=== PATIENT | female | born 1995 | race Two or more races ===

== ENCOUNTER 2022-08-26 | Outpatient (REF) | payer MEDICAID, SELFPAY ==
[2022-09-01 15:22] LABS: N.Gonorrhoeae RNA TMA, Rectal DETECTED
== END 2022-08-26 00:01 | disposition home or self-care (01) ==
LOC: HO.LNP
PROVIDERS: Visit Provider Student in an Organized Health Care Education/Training Program
DX: R82.90 Unspecified abnormal findings in urine (principal); Z20.2 Contact with and (suspected) exposure to infections with a predominantly sexual mode of transmission
CPT/HCPCS: 87070; 87147; 87591

== ENCOUNTER 2022-09-28 18:05 | Outpatient (REF) | payer MEDICAID, SELFPAY ==
[2022-09-28 18:57] LABS: Influenza A PCR NEGATIVE (Negative); Influenza B PCR NEGATIVE (Negative); Resp Syncy Virus RNA Qual PCR NEGATIVE (Negative); SARS COV2 PCR INHOUSE NEGATIVE (Negative)
== END 2022-09-28 18:06 | disposition home or self-care (01) ==
LOC: HO.HHCLNP 18:05
PROVIDERS: Visit Provider Registered Nurse
DX: J02.9 Acute pharyngitis, unspecified (principal); Z20.822 Contact with and (suspected) exposure to COVID-19
CPT/HCPCS: 0241U; 87070

== ENCOUNTER 2023-10-22 11:08 | Outpatient (REF) | payer MEDICAID, SELFPAY ==
[2023-10-22 14:18] LABS: HCG Quantitative 240 mIU/mL
== END 2023-10-22 11:09 | disposition home or self-care (01) ==
LOC: HO.HMGCLDS 11:08
PROVIDERS: PCP Pediatrics; Visit Provider Family Medicine
DX: Z32.01 Encounter for pregnancy test, result positive (principal)
CPT/HCPCS: 36415; 84702